=== PATIENT | female | born 1995 | race American Indian/Alaskan Native ===

== ENCOUNTER 2020-01-11 15:20 | Emergency (ER) | payer SELFPAY ==
[2020-01-11 15:33] VITALS: BP 120/70
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
== END 2020-01-11 20:45 | disposition left against medical advice (07) ==
LOC: ED 15:20
DX: M54.5 Low back pain (principal); Z53.21 Procedure and treatment not carried out due to patient leaving prior to being seen by health care provider